=== PATIENT | female | born 1955 | race Caucasian/White ===

== ENCOUNTER 2023-11-10 08:29 | Inpatient (IN) ==
[2023-11-10] MEDS ORDERED: IOPAMIDOL 100 ML BOTTLE IV ONE (08:30)
[2023-11-10] MEDS: ONDANSETRON 4 MG/2 ML VIAL IV ONE (09:08)
[2023-11-10] MEDS: KETOROLAC 15 MG/ML VIAL IV ONE (09:08)
[2023-11-10 09:33] LABS: Basophils # (Auto) 0.03 K/mcL (0.00-0.30); Basophils % (Auto) 0.3 % (0.0-2.0); Eosinophils % (Auto) 1.8 % (0.0-7.0); Hematocrit 34.4 % (34.1-44.9); Hemoglobin 10.6 g/dL (11.2-15.7); Lymphocytes % (Auto) 20.8 % (15.5-49.0); Mean Cell Volume 95.8 fL (80.0-100.0); Mean Corpuscular HGB Conc 30.8 g/dL (31.0-36.0); Mean Platelet Volume 9.5 fL (8.8-12.5); Monocytes # (Auto) 0.48 K/mcL (0.10-0.90); Monocytes % (Auto) 4.3 % (1.0-12.0); Neutrophils % (Auto) 72.1 % (38.0-78.0); Platelet Count 417 K/mcL (140-440); RBC 3.59 M/mcL (3.59-5.38); Red Cell Distribution Width 12.6 % (11.5-14.5); WBC 11.1 K/mcL (4.5-11.0)
[2023-11-10 09:37] LABS: INR 0.9 (0.9-1.1); Prothrombin Time 12.8 sec (11.9-14.5)
[2023-11-10 09:42] LABS: proBNP 47.4 pg/mL (<125.0)
[2023-11-10 09:45] LABS: ALT/SGPT 8 U/L (<40); AST/SGOT 19 U/L (<32); Albumin 4.1 gm/dL (3.2-5.2); Albumin/Globulin Ratio 1.6 (1.0-2.3); Alkaline Phosphatase 92 U/L (39-117); Bilirubin,Total 0.4 mg/dL (0.1-1.0); Blood Urea Nitrogen 11 mg/dL (8-23); Calcium 9.6 mg/dL (8.6-10.4); Carbon Dioxide 34 mmol/L (22-30); Chloride 89 mmol/L (96-108); Globulin 2.6 gm/dL (2.2-3.7); Glomerular Filtration Rate 108; Glucose 172 mg/dL (70-105); Potassium 4.3 mmol/L (3.3-5.1); Sodium 134 mmol/L (133-145)
[2023-11-10 10:50] LABS: Appearance,Urine Clear (Clear); Bacteria,Urine Few /hpf (0); Bilirubin,Urine Small mg/dL (Negative); Color,Urine Yellow; Culture Indicated,Urine Yes; Glucose,Urine (UA) 100 mg/dL (Negative); Ketones,Urine 15 mg/dL (Negative); Leukocyte Esterase,Urine Trace /uL (Negative); Nitrate,Urine Positive (Negative); Protein,Urine >=300 mg/dL (Negative); Urine Blood Negative ery/mcL (Negative); Urine RBC 3 /hpf (0-3); Urine Squamous Epithelial Cell 0 /hpf (0-4); Urine WBC 1 /hpf (0-4)
[2023-11-10] MEDS: CEFEPIME 2 GM VIAL IV ONE (11:51)
[2023-11-10] MEDS: AZITHROMYCIN 500 MG in DEXTROSE 5% IN WATER 250 ML IV ONE (12:14)
[2023-11-10] MEDS: ACETAMINOPHEN 325 MG TABLET PO ONE (12:35)
[2023-11-10 13:06] LABS: ABG Methemoglobin 0.3 % (0.4-1.5); Total Hemoglobin 11.1 gm/Dl (12.0-15.0); VBG Base Excess 3 (-2-3); VBG HCO3 31.1 mmol/L (24.0-28.0); VBG Oxygen Saturation 92.4 % (40.0-70.0); VBG PCO2 65.3 mmHg (41.0-51.0); VBG Total CO2 33.1 mmol/L (25.0-29.0)
[2023-11-10] MEDS: 0.9 % SODIUM CHLORIDE 1,000 ML IV ONE (13:51)
[2023-11-10] MEDS: ACETAMINOPHEN 650 MG/65 ML BAG IV ONE (13:51)
[2023-11-10] MEDS ORDERED: POTASSIUM CHLORIDE 40 MEQ in DEXTROSE 5% IN WATER 500 ML IV PRN (14:16)
[2023-11-10] MEDS ORDERED: POTASSIUM CHLORIDE 20 MEQ TABLET PO PRN ×2 (14:16)
[2023-11-10] MEDS ORDERED: DEXTROSE 31 GM ORAL.SUSP PO PRN (14:16)
[2023-11-10] MEDS ORDERED: DEXTROSE 50% 50 ML VIAL IV PRN (14:16)
[2023-11-10] MEDS ORDERED: SENNOSIDES 1 TABLET PO PRN (14:16)
[2023-11-10] MEDS ORDERED: MAGNESIUM SULFATE 2 GM/50 ML BAG IV PRN (14:16)
[2023-11-10] MEDS ORDERED: IPRATROPIUM/ALBUTEROL 3 ML AMPUL.NEB NEB PRN (14:16)
[2023-11-10] MEDS: cefTRIAXone 2 GM in DEXTROSE 5% IN WATER 50 ML IV SCH (14:56)
[2023-11-10] MEDS: methylPREDNISolone SOD SUCC 40 MG/ML VIAL IV SCH (15:02)
[2023-11-10] MEDS: INSULIN LISPRO 1 UNIT/0.01 ML UNIT SQ SCH (17:28)
[2023-11-10] MEDS: PANTOPRAZOLE 40 MG TABLET PO SCH (18:02)
[2023-11-10] MEDS: morphine 30 MG TAB.SR.12H PO PRN (18:02)
[2023-11-10] MEDS: LIDOCAINE 4% TOP PATCH TOPICAL SCH (18:03)
[2023-11-10] MEDS ORDERED: FEZOLINETANT 45 MG PO PRN (18:15)
[2023-11-10] MEDS: ENALAPRILAT 1.25 MG/ML VIAL IV PRN (19:25)
[2023-11-10] MEDS: LEVALBUTEROL 0.63 MG/3 ML AMPUL.NEB NEB PRN (20:09)
[2023-11-10] MEDS: BUDESONIDE 0.5 MG/2 ML AMPUL.NEB NEB SCH (20:09)
[2023-11-10] MEDS: hydrALAZINE 20 MG/ML VIAL IV PRN (21:02)
[2023-11-10] MEDS: ENOXAPARIN 60 MG/0.6 ML SYRINGE SQ SCH (21:04)
[2023-11-10] MEDS: cloNIDine HCL 0.1 MG TABLET PO SCH (21:25)
[2023-11-10] MEDS: MONTELUKAST 10 MG TABLET PO SCH (21:26)
[2023-11-10] MEDS: DOCUSATE SODIUM 100 MG CAPSULE PO SCH (22:16)
[2023-11-10] MEDS: MUPIROCIN OINT 2% 22GM NARES SCH (22:41)
[2023-11-10] MEDS: LABETALOL HCL 20 MG/4 ML VIAL IV PRN (22:41)
[2023-11-10] MEDS: cloNIDine HCL 0.1 MG TABLET PO PRN (23:18)
[2023-11-11] MEDS: SUMAtriptan SUCCINATE 50 MG TABLET PO PRN (00:17)
[2023-11-11 06:08] LABS: Basophils # (Auto) 0.01 K/mcL (0.00-0.30); Basophils % (Auto) 0.1 % (0.0-2.0); Eosinophils # (Auto) 0 K/mcL (0.00-0.70); Eosinophils % (Auto) 0 % (0.0-7.0); Hematocrit 35.1 % (34.1-44.9); Hemoglobin 11.2 g/dL (11.2-15.7); Lymphocytes # (Auto) 1.25 K/mcL (1.50-4.80); Lymphocytes % (Auto) 16.3 % (15.5-49.0); Mean Cell Volume 94.9 fL (80.0-100.0); Mean Corpuscular HGB Conc 31.9 g/dL (31.0-36.0); Mean Platelet Volume 9.7 fL (8.8-12.5); Monocytes # (Auto) 0.19 K/mcL (0.10-0.90); Monocytes % (Auto) 2.5 % (1.0-12.0); Neutrophils % (Auto) 79.7 % (38.0-78.0); Platelet Count 426 K/mcL (140-440); Red Cell Distribution Width 12.7 % (11.5-14.5); WBC 7.7 K/mcL (4.5-11.0)
[2023-11-11 06:43] LABS: ALT/SGPT < 5 U/L (<40); AST/SGOT 14 U/L (<32); Albumin 4.2 gm/dL (3.2-5.2); Albumin/Globulin Ratio 1.3 (1.0-2.3); Alkaline Phosphatase 86 U/L (39-117); Bilirubin,Direct < 0.2 mg/dL (0-0.3); Bilirubin,Total 0.2 mg/dL (0.1-1.0); Blood Urea Nitrogen 8 mg/dL (8-23); Calcium 10.4 mg/dL (8.6-10.4); Carbon Dioxide 34 mmol/L (22-30); Chloride 92 mmol/L (96-108); Globulin 3.2 gm/dL (2.2-3.7); Glomerular Filtration Rate 108; Glucose 268 mg/dL (70-105); Lactate Dehydrogenase 159 U/L (135-225); Phosphorous 2.7 mg/dL (2.5-4.5); Potassium 4.2 mmol/L (3.3-5.1); Sodium 136 mmol/L (133-145); Triglycerides 150 mg/dL (<150); Uric Acid 3.1 mg/dL (2.5-8.0)
[2023-11-11] MEDS: POLYETHYLENE GLYCOL 3350 17 GM PACKET PO PRN (06:54)
[2023-11-11] MEDS: INSULIN GLARGINE, HUMAN 1 UNIT/0.01 ML SQ SCH (08:41)
[2023-11-11] MEDS: AZITHROMYCIN 250 MG TABLET PO SCH (08:41)
[2023-11-11] MEDS: VENLAFAXINE 150 MG CAP.XL.24H PO SCH (08:41)
[2023-11-11] MEDS: LOSARTAN 50 MG TABLET PO SCH (08:42)
[2023-11-11] MEDS ORDERED: AZITHROMYCIN 500 MG in DEXTROSE 5% IN WATER 250 ML IV SCH (09:00)
[2023-11-11] MEDS ORDERED: MUPIROCIN OINT 2% 22GM NARES SCH (09:00)
[2023-11-11] MEDS: KETOROLAC 15 MG/ML VIAL IV PRN (10:14)
[2023-11-11] MEDS: ACETAMINOPHEN 325 MG TABLET PO PRN (11:39)
[2023-11-11] MEDS: MECLIZINE 25 MG TABLET PO PRN (13:41)
[2023-11-11] MEDS: SOLIFENACIN 10 MG PO SCH (15:59)
[2023-11-11] MEDS: methylPREDNISolone SOD SUCC 40 MG/ML VIAL IV SCH (20:14)
[2023-11-12 06:42] LABS: ALT/SGPT < 5 U/L (<40); AST/SGOT 15 U/L (<32); Albumin/Globulin Ratio 1.3 (1.0-2.3); Alkaline Phosphatase 71 U/L (39-117); Bilirubin,Direct < 0.2 mg/dL (0-0.3); Bilirubin,Total 0.3 mg/dL (0.1-1.0); Blood Urea Nitrogen 12 mg/dL (8-23); Calcium 10.1 mg/dL (8.6-10.4); Carbon Dioxide 33 mmol/L (22-30); Chloride 90 mmol/L (96-108); Globulin 3.1 gm/dL (2.2-3.7); Glomerular Filtration Rate 108; Glucose 196 mg/dL (70-105); Lactate Dehydrogenase 152 U/L (135-225); Phosphorous 4.2 mg/dL (2.5-4.5); Potassium 4.2 mmol/L (3.3-5.1); Sodium 132 mmol/L (133-145); Triglycerides 168 mg/dL (<150); Uric Acid 2.9 mg/dL (2.5-8.0)
[2023-11-12] MEDS: FUROSEMIDE 40 MG/4 ML VIAL IV ONE (12:15)
[2023-11-13] MEDS: traZODone HCL 50 MG TABLET PO PRN (02:08)
[2023-11-13 06:53] LABS: ALT/SGPT 7 U/L (<40); AST/SGOT 13 U/L (<32); Albumin 4.2 gm/dL (3.2-5.2); Albumin/Globulin Ratio 1.8 (1.0-2.3); Alkaline Phosphatase 72 U/L (39-117); Bilirubin,Direct < 0.2 mg/dL (0-0.3); Bilirubin,Total 0.2 mg/dL (0.1-1.0); Blood Urea Nitrogen 14 mg/dL (8-23); Calcium 10.1 mg/dL (8.6-10.4); Carbon Dioxide 35 mmol/L (22-30); Chloride 92 mmol/L (96-108); Globulin 2.4 gm/dL (2.2-3.7); Glomerular Filtration Rate 108; Glucose 211 mg/dL (70-105); Lactate Dehydrogenase 154 U/L (135-225); Phosphorous 4.4 mg/dL (2.5-4.5); Potassium 4.1 mmol/L (3.3-5.1); Sodium 135 mmol/L (133-145); Triglycerides 169 mg/dL (<150); Uric Acid 2.9 mg/dL (2.5-8.0)
[2023-11-13] MEDS: cefTRIAXone 2 GM VIAL ONE (08:26)
[2023-11-13 08:51] LABS: C-Reactive Protein < 0.30 mg/dL (0.03-0.80)
[2023-11-13] MEDS ORDERED: MECLIZINE 25 MG TABLET PO PRN (17:04)
[2023-11-13] MEDS: predniSONE 20 MG TABLET PO SCH (17:05)
[2023-11-13] MEDS: PHENOL/SODIUM PHENOLATE 5 SPRAY BOTTLE 180ML SSP PRN (17:27)
[2023-11-13] MEDS: CEFDINIR 300 MG CAPSULE PO SCH (20:53)
[2023-11-13] MEDS: NYSTATIN 500,000 UNITS/5 ML ORAL.SUSP SSW SCH (20:54)
[2023-11-14 06:51] LABS: Basophils # (Auto) 0.03 K/mcL (0.00-0.30); Basophils % (Auto) 0.3 % (0.0-2.0); Eosinophils # (Auto) 0.08 K/mcL (0.00-0.70); Eosinophils % (Auto) 0.9 % (0.0-7.0); Hematocrit 38.1 % (34.1-44.9); Hemoglobin 12.2 g/dL (11.2-15.7); Lymphocytes # (Auto) 3.26 K/mcL (1.50-4.80); Lymphocytes % (Auto) 36.2 % (15.5-49.0); Mean Cell Volume 93.6 fL (80.0-100.0); Mean Platelet Volume 9.8 fL (8.8-12.5); Monocytes # (Auto) 0.96 K/mcL (0.10-0.90); Monocytes % (Auto) 10.7 % (1.0-12.0); Neutrophils % (Auto) 50.9 % (38.0-78.0); Platelet Count 482 K/mcL (140-440); RBC 4.07 M/mcL (3.59-5.38); Red Cell Distribution Width 12.7 % (11.5-14.5)
[2023-11-14 07:00] LABS: Blood Urea Nitrogen 15 mg/dL (8-23); Calcium 9.9 mg/dL (8.6-10.4); Carbon Dioxide 34 mmol/L (22-30); Chloride 93 mmol/L (96-108); Glomerular Filtration Rate 108; Glucose 98 mg/dL (70-105); Sodium 137 mmol/L (133-145)
== END 2023-11-14 13:54 | disposition home or self-care (01) | DRG 177 ==
LOC: ED 08:29 → ICU 14:08 → MEDSUR 11-12 15:11
PROVIDERS: ADMIT Internal Medicine; ATTEND Student in an Organized Health Care Education/Training Program

== ENCOUNTER 2024-03-14 10:07 | Inpatient (IN) ==
[2024-03-14 10:55] LABS: Basophils # (Auto) 0.02 K/mcL (0.00-0.30); Basophils % (Auto) 0.2 % (0.0-2.0); Eosinophils # (Auto) 0.28 K/mcL (0.00-0.70); Eosinophils % (Auto) 2.4 % (0.0-7.0); Hematocrit 35.9 % (34.1-44.9); Lymphocytes % (Auto) 17.4 % (15.5-49.0); Mean Corpuscular HGB Conc 30.6 g/dL (31.0-36.0); Mean Platelet Volume 9.1 fL (8.8-12.5); Monocytes # (Auto) 0.62 K/mcL (0.10-0.90); Monocytes % (Auto) 5.4 % (1.0-12.0); Neutrophils % (Auto) 73.8 % (38.0-78.0); Platelet Count 402 K/mcL (140-440); RBC 3.78 M/mcL (3.59-5.38); Red Cell Distribution Width 12.6 % (11.5-14.5); WBC 11.5 K/mcL (4.5-11.0)
[2024-03-14 11:14] LABS: ALT/SGPT 9 U/L (<40); AST/SGOT 18 U/L (<32); Albumin 4.1 gm/dL (3.2-5.2); Albumin/Globulin Ratio 1.3 (1.0-2.3); Alkaline Phosphatase 111 U/L (39-117); Bilirubin,Total 0.3 mg/dL (0.1-1.0); Blood Urea Nitrogen 12 mg/dL (8-23); Calcium 9.9 mg/dL (8.6-10.4); Carbon Dioxide 37 mmol/L (22-30); Chloride 89 mmol/L (96-108); Globulin 3.2 gm/dL (2.2-3.7); Glomerular Filtration Rate 108; Glucose 148 mg/dL (70-105); Potassium 4.8 mmol/L (3.3-5.1); Sodium 134 mmol/L (133-145)
[2024-03-14] MEDS: PIPERACILLIN SODIUM/TAZOBACTAM 3.375 GM in DEXTROSE 5% IN WATER 50 ML IV ONE (14:28)
[2024-03-14 14:30] LABS: Appearance,Urine Clear (Clear); Bacteria,Urine Many /hpf (0); Bilirubin,Urine Negative (Negative); Color,Urine Yellow; Glucose,Urine (UA) 100 mg/dL (Negative); Ketones,Urine Negative (Negative); Leukocyte Esterase,Urine Small /uL (Negative); Nitrate,Urine Positive (Negative); PH,Urine 6.5 (5.0-9.0); Protein,Urine 100 mg/dL (Negative); Specific Gravity,Urine 1.015 (1.000-1.035); Urine Blood Negative ery/mcL (Negative); Urine RBC 0 /hpf (0-3); Urine Squamous Epithelial Cell 0 /hpf (0-4); Urine WBC 3 /hpf (0-4); Urobilinogen,Urine Normal
[2024-03-14] MEDS: VANCOMYCIN PER PHARMACY IV ONE (14:35)
[2024-03-14] MEDS: VANCOMYCIN 2,000 MG in 0.9 % SODIUM CHLORIDE 500 ML IV ONE (15:12)
[2024-03-14 15:41] LABS: proBNP 38.2 pg/mL (<125.0)
[2024-03-14 15:46] LABS: C-Reactive Protein 1.39 mg/dL (0.03-0.80)
[2024-03-14 16:01] LABS: Basophils % (Manual) 1 % (0-2); Eosinophils % (Manual) 1 % (0-7); Lymphocytes % 24 % (15-49); Monocytes % (Manual) 8 % (1-12); Platelet Estimate NORMAL (Normal); RBC Morphology NORMAL (Normal); Segmented Neutrophils % 66 % (38-78)
[2024-03-14] MEDS: KETOROLAC 30 MG/ML VIAL IV ONE (17:04)
[2024-03-14] MEDS: morphine 30 MG TAB.SR.12H PO ONE (17:20)
[2024-03-14] MEDS ORDERED: MAGNESIUM SULFATE 2 GM/50 ML BAG IV PRN (19:33)
[2024-03-14] MEDS ORDERED: DEXTROSE 50% 50 ML VIAL IV PRN (19:33)
[2024-03-14] MEDS ORDERED: POTASSIUM CHLORIDE 40 MEQ in DEXTROSE 5% IN WATER 500 ML IV PRN (19:33)
[2024-03-14] MEDS ORDERED: ACETAMINOPHEN 160 MG/5 ML ORAL.SOL PO PRN (19:33)
[2024-03-14] MEDS ORDERED: ONDANSETRON 4 MG/2 ML VIAL IV PRN (19:33)
[2024-03-14] MEDS ORDERED: POTASSIUM CHLORIDE 20 MEQ TABLET PO PRN (19:33)
[2024-03-14] MEDS ORDERED: DEXTROSE 31 GM ORAL.SUSP PO PRN (19:33)
[2024-03-14] MEDS ORDERED: VANCOMYCIN PER PHARMACY IV SCH (19:33)
[2024-03-14] MEDS ORDERED: METOCLOPRAMIDE 10 MG/2 ML VIAL IV PRN (19:33)
[2024-03-14] MEDS ORDERED: diphenhydrAMINE 25 MG CAPSULE PO PRN (20:44)
[2024-03-14] MEDS: BUDESONIDE 0.5 MG/2 ML AMPUL.NEB NEB SCH (21:42)
[2024-03-14] MEDS: IPRATROPIUM/ALBUTEROL 3 ML AMPUL.NEB NEB PRN (21:42)
[2024-03-14] MEDS: morphine 30 MG TAB.SR.12H PO SCH (22:09)
[2024-03-14] MEDS: MONTELUKAST 10 MG TABLET PO SCH (22:09)
[2024-03-14] MEDS: DOCUSATE SODIUM 100 MG CAPSULE PO SCH (22:09)
[2024-03-14] MEDS: cloNIDine HCL 0.1 MG TABLET PO SCH (22:09)
[2024-03-14] MEDS: INSULIN LISPRO 1 UNIT/0.01 ML UNIT SQ SCH (22:22)
[2024-03-14] MEDS: VANCOMYCIN 500 MG in 0.9 % SODIUM CHLORIDE 100 ML IV ONE (22:24)
[2024-03-14] MEDS: [UNRECOGNIZED DRUG - OTHER] PO SCH (23:34)
[2024-03-14] MEDS: ESOMEPRAZOLE MAGNESIUM 20 MG PO SCH (23:34)
[2024-03-14] MEDS: PIPERACILLIN SODIUM/TAZOBACTAM 3.375 GM in DEXTROSE 5% IN WATER 100 ML IV SCH (23:35)
[2024-03-15] MEDS: 0.9 % SODIUM CHLORIDE 10 ML SYRINGE IV SCH ×2 (05:50→20:50)
[2024-03-15] MEDS: hydrALAZINE 20 MG/ML VIAL IV PRN (05:57)
[2024-03-15 06:41] LABS: Basophils # (Auto) 0.02 K/mcL (0.00-0.30); Basophils % (Auto) 0.2 % (0.0-2.0); Eosinophils # (Auto) 0.27 K/mcL (0.00-0.70); Hematocrit 34.4 % (34.1-44.9); Hemoglobin 10.5 g/dL (11.2-15.7); Lymphocytes # (Auto) 2.11 K/mcL (1.50-4.80); Lymphocytes % (Auto) 23.7 % (15.5-49.0); Mean Cell Volume 94.8 fL (80.0-100.0); Mean Corpuscular HGB Conc 30.5 g/dL (31.0-36.0); Mean Platelet Volume 9.2 fL (8.8-12.5); Monocytes # (Auto) 0.61 K/mcL (0.10-0.90); Monocytes % (Auto) 6.8 % (1.0-12.0); Neutrophils % (Auto) 65.7 % (38.0-78.0); Platelet Count 358 K/mcL (140-440); RBC 3.63 M/mcL (3.59-5.38); Red Cell Distribution Width 12.8 % (11.5-14.5); WBC 8.9 K/mcL (4.5-11.0)
[2024-03-15 07:13] LABS: ALT/SGPT 6 U/L (<40); AST/SGOT 15 U/L (<32); Albumin 3.8 gm/dL (3.2-5.2); Albumin/Globulin Ratio 1.3 (1.0-2.3); Alkaline Phosphatase 92 U/L (39-117); Bilirubin,Direct < 0.2 mg/dL (0-0.3); Bilirubin,Total 0.3 mg/dL (0.1-1.0); Blood Urea Nitrogen 12 mg/dL (8-23); Calcium 9.8 mg/dL (8.6-10.4); Carbon Dioxide 37 mmol/L (22-30); Chloride 91 mmol/L (96-108); Glomerular Filtration Rate 108; Glucose 120 mg/dL (70-105); Lactate Dehydrogenase 145 U/L (135-225); Phosphorous 4.2 mg/dL (2.5-4.5); Potassium 4.1 mmol/L (3.3-5.1); Sodium 136 mmol/L (133-145); Triglycerides 129 mg/dL (<150); Uric Acid 3.4 mg/dL (2.5-8.0)
[2024-03-15] MEDS ORDERED: MECLIZINE 25 MG TABLET PO PRN (07:43)
[2024-03-15] MEDS ORDERED: LEVALBUTEROL TARTRATE INH PRN (07:44)
[2024-03-15] MEDS: acetaZOLAMIDE SOD 500 MG VIAL IV ONE (08:41)
[2024-03-15] MEDS ORDERED: MUPIROCIN OINT 2% 22GM NARES SCH (09:00)
[2024-03-15] MEDS: PANTOPRAZOLE 40 MG TABLET PO SCH (10:30)
[2024-03-15] MEDS: MUPIROCIN OINT 2% 22GM NARES SCH (11:42)
[2024-03-15] MEDS: VANCOMYCIN 1,500 MG in 0.9 % SODIUM CHLORIDE 500 ML IV SCH (11:46)
[2024-03-15] MEDS ORDERED: LIDOCAINE 1% 10 ML VIAL SQ ONE (12:04)
[2024-03-15] MEDS: INSULIN GLARGINE, HUMAN 1 UNIT/0.01 ML SQ SCH (12:54)
[2024-03-15] MEDS: ENOXAPARIN 40 MG/0.4 ML SYRINGE SQ SCH (13:24)
[2024-03-15] MEDS: INSULIN GLARGINE, HUMAN 1 UNIT/0.01 ML SQ ONE (13:25)
[2024-03-15] MEDS: morphine 2 MG/ML VIAL IV PRN (13:26)
[2024-03-15] MEDS: LORATADINE 10 MG TABLET PO SCH (13:49)
[2024-03-15] MEDS: LOSARTAN 50 MG TABLET PO SCH (13:50)
[2024-03-15] MEDS: VENLAFAXINE 150 MG CAP.XL.24H PO SCH (13:50)
[2024-03-15] MEDS: CHLORHEXIDINE GLUCONATE 0.12% 473ML BOTTLE TOPICAL SCH (15:53)
[2024-03-15] MEDS: 0.9 % SODIUM CHLORIDE 10 ML SYRINGE IV PRN (22:42)
[2024-03-15] MEDS: ENALAPRILAT 1.25 MG/ML VIAL IV PRN (23:16)
[2024-03-16] MEDS: ACETAMINOPHEN 325 MG TABLET PO PRN (01:12)
[2024-03-16] MEDS: ACETAMINOPHEN 325 MG TABLET PO ONE (01:16)
[2024-03-16] MEDS: cloNIDine HCL 0.1 MG TABLET PO PRN (02:55)
[2024-03-16] MEDS: acetaZOLAMIDE SOD 500 MG VIAL IV ONE (07:50)
[2024-03-16 08:43] LABS: ALT/SGPT < 5 U/L (<40); AST/SGOT 16 U/L (<32); Albumin 3.8 gm/dL (3.2-5.2); Albumin/Globulin Ratio 1.4 (1.0-2.3); Alkaline Phosphatase 86 U/L (39-117); Bilirubin,Direct < 0.2 mg/dL (0-0.3); Bilirubin,Total 0.3 mg/dL (0.1-1.0); Blood Urea Nitrogen 10 mg/dL (8-23); C-Reactive Protein 0.86 mg/dL (0.03-0.80); Calcium 10.2 mg/dL (8.6-10.4); Carbon Dioxide 27 mmol/L (22-30); Chloride 94 mmol/L (96-108); Globulin 2.8 gm/dL (2.2-3.7); Glomerular Filtration Rate 108; Glucose 299 mg/dL (70-105); Lactate Dehydrogenase 157 U/L (135-225); Phosphorous 2.2 mg/dL (2.5-4.5); Sodium 134 mmol/L (133-145); Triglycerides 146 mg/dL (<150); Uric Acid 2.9 mg/dL (2.5-8.0)
[2024-03-16] MEDS: POTASSIUM CHLORIDE 20 MEQ TABLET PO PRN (09:01)
[2024-03-16] MEDS: morphine 15 MG TAB.SR.12H PO SCH (09:02)
[2024-03-16] MEDS: INSULIN GLARGINE, HUMAN 1 UNIT/0.01 ML SQ SCH (09:03)
[2024-03-16] MEDS: VANCOMYCIN 2,000 MG in 0.9 % SODIUM CHLORIDE 500 ML IV SCH (10:41)
[2024-03-16] MEDS: PIPERACILLIN SODIUM/TAZOBACTAM 4.5 GM in DEXTROSE 5% IN WATER 100 ML IV SCH (13:09)
[2024-03-17] MEDS: traZODone HCL 50 MG TABLET PO PRN (01:26)
[2024-03-17 06:18] LABS: ALT/SGPT < 5 U/L (<40); AST/SGOT 13 U/L (<32); Albumin 3.8 gm/dL (3.2-5.2); Albumin/Globulin Ratio 1.5 (1.0-2.3); Alkaline Phosphatase 74 U/L (39-117); Bilirubin,Direct < 0.2 mg/dL (0-0.3); Bilirubin,Total 0.3 mg/dL (0.1-1.0); Blood Urea Nitrogen 9 mg/dL (8-23); Calcium 9.9 mg/dL (8.6-10.4); Carbon Dioxide 26 mmol/L (22-30); Chloride 103 mmol/L (96-108); Globulin 2.6 gm/dL (2.2-3.7); Glomerular Filtration Rate 108; Glucose 119 mg/dL (70-105); Lactate Dehydrogenase 147 U/L (135-225); Phosphorous 3.2 mg/dL (2.5-4.5); Potassium 3.1 mmol/L (3.3-5.1); Sodium 139 mmol/L (133-145); Triglycerides 139 mg/dL (<150)
[2024-03-17] MEDS: SUMAtriptan SUCCINATE 50 MG TABLET PO PRN (10:08)
[2024-03-17] MEDS: SENNOSIDES 1 TABLET PO PRN (19:45)
[2024-03-17] MEDS: POLYETHYLENE GLYCOL 3350 17 GM PACKET PO PRN (19:45)
[2024-03-17] MEDS: LABETALOL HCL 20 MG/4 ML VIAL IV PRN (22:05)
[2024-03-17] MEDS: LABETALOL HCL 20 MG/4 ML VIAL IV ONE (22:31)
[2024-03-18] MEDS: FLU VACC TS2024-25(65YR UP)/PF 180 MCG/0.5 ML SYRINGE IM ONE (14:41)
== END 2024-03-18 15:20 | disposition home or self-care (01) | DRG 70 ==
LOC: ED 10:07 → ICU 19:25
PROVIDERS: ADMIT Internal Medicine; ATTEND Internal Medicine